=== PATIENT | female | born 2000 | race Caucasian/White ===

== ENCOUNTER 2018-07-14 23:57 | Emergency (ER) | payer OTHER ==
--- NOTE | 2018-07-15 00:11 | EDPHY ---
H & P Stated Complaint: ETOH, anxious, friends concerned about MH Source: Patient - Personal History LMP (Females 10-55): Over 28 Days Ago Current Tetanus Diphtheria and Acellular Pertussis (TDAP): Yes - Medical/Surgical History Hx Asthma: No Hx Chronic Respiratory Disease: No Hx Diabetes: No Hx Cardiac Disease: No Hx Renal Disease: No Hx Cirrhosis: No Hx Alcoholism: No Hx HIV/AIDS: No Hx Splenectomy or Spleen Trauma: No Other PMH: denies - Social History Smoking Status: Never smoked Time Seen by Provider: 07/15/18 00:11 HPI/ROS: HPI CHIEF COMPLAINT: Alcohol intoxication, suicidal statement to friends. Depressed. HISTORY OF PRESENT ILLNESS: 17-year-old female, otherwise healthy, presents emergency room by private vehicle with her friends for acute alcohol intoxication. According to friends she made suicidal statements. Patient reports that she made suicidal statements to get her friends away. She does report depression. Past Medical History: Denies medical history Past Surgical History: Denies surgical history Social History: Alcohol this evening. Unable to quantify. Family History: Noncontributory ROS REVIEW OF SYSTEMS: 10 Systems were reviewed and negative with the exception of the elements mentioned in the history of present illness. Exam Constitutional smells of alcohol, intoxicated triage nursing summary reviewed, vital signs reviewed, awake/alert. Eyes normal conjunctivae and sclera, EOMI, PERRLA. HENT normal inspection, atraumatic, moist mucus membranes, no epistaxis, neck supple/ no meningismus, no raccoon eyes. Respiratory clear to auscultation bilaterally, normal breath sounds, no respiratory distress, no wheezing. Cardiovascular rate normal, regular rhythm, no murmur, no edema, distal pulses normal. Gastrointestinal soft, non-tender, no rebound, no guarding, normal bowel sounds, no distension, no pulsatile mass. Genitourinary no CVA tenderness. Musculoskeletal no midline vertebral tenderness, full range of motion, no calf swelling, no tenderness of extremities, no meningismus, good pulses, neurovascularly intact. Skin pink, warm, & dry, no rash, skin atraumatic. Neurologic awake, alert and oriented x 3, AAOx3, moves all 4 extremities equally, motor intact, sensory intact, CN II-XII intact, normal cerebellar, normal vision, normal speech. Psychiatric sad, depressed suicidal statements earlier. Heme/Lymph/Immune no lymphadenopathy. Differential Diagnosis: Includes but is not limited to in a particular order underlying depression, mood disorder, bipolar disorder, alcohol intoxication Medical Decision Making: Plan for this patient IV establishment blood draw, serum alcohol level. Patient need mental health evaluation once she is sober. Re-evaluation: Serum alcohol level 178. 0623: Patient is now much more sober. She will need mental health evaluation due to suicidal statements made to her friends. She does feel depressed. 7:00 a.m. Shift change signed over [facility]. [facility] Constitutional: Initial Vital Signs Temperature (C) 36.6 C 07/15/18 00:01 Heart Rate 109 H 07/15/18 00:01 Respiratory Rate 20 07/15/18 00:01 Blood Pressure 154/100 H 07/15/18 00:01 O2 Sat (%) 96 07/15/18 00:01 O2 Delivery Mode Room Air Allergies/Adverse Reactions: No Known Allergies Allergy (Unverified 07/15/18 00:01) Medical Decision Making Other Provider: I assumed care of the patient at 0700. The patient was evaluated by Mental Health. The patient's boyfriend is here with her as well too. The patient contracts for safety. She does have depression and is currently under the care of a therapist. The patient reportedly made a statement last night while intoxicated that she might be "better off " the patient now states that statement was made out of frustration secondary to her alcohol use. Now that she is sober she is no longer suicidal. The patient does have a safety plan and will be discharged with the expectation she see her therapist today. The patient's boyfriend will be with her and be able to provide observation. (Jamar Saldaña) - Data Points Laboratory Results: Laboratory Results 07/15/18 00:20 07/15/18 00:20 07/15/18 07/15/18 07/15/18 01:55 00:20 00:20 WBC RBC Hgb Hct MCV MCH MCHC RDW Plt Count MPV Neut % (Auto) Lymph % (Auto) [place] % (Auto) Eos % (Auto) Baso % (Auto) Nucleat RBC Rel Count Absolute Neuts (auto) Absolute Lymphs (auto) Absolute Monos (auto) Absolute Eos (auto) Absolute Basos (auto) Absolute Nucleated RBC Immature Gran % Immature Gran # Platelet Estimate Microcytic Cells Sodium 142 mEq/L mEq/L (135-145) Potassium 3.3 mEq/L mEq/L (3.3-5.0) Chloride 113 mEq/L H mEq/L (97-110) Carbon Dioxide 19 mEq/l L mEq/l (22-31) Anion Gap 10 mEq/L mEq/L (6-14) BUN 8 mg/dL mg/dL (7-23) Creatinine 0.7 mg/dL mg/dL (0.6-1.0) Estimated GFR > 60 Glucose 118 mg/dL H mg/dL (70-100) Calcium 8.7 mg/dL mg/dL (8.5-10.4) Beta HCG, Qual NEGATIVE Urine Opiates Screen NEGATIVE (NEGATIVE) Urine Barbiturates NEGATIVE (NEGATIVE) Ur Phencyclidine Scrn NEGATIVE (NEGATIVE) Ur Amphetamine Screen NEGATIVE (NEGATIVE) U Benzodiazepines Scrn NEGATIVE (NEGATIVE) Urine Cocaine Screen NEGATIVE (NEGATIVE) U Marijuana (THC) Screen NEGATIVE (NEGATIVE) Ethyl Alcohol 178 mg/dL H mg/dL (0-10) 07/15/18 00:20 WBC 8.10 10^3/uL 10^3/uL (3.80-9.50) RBC 3.97 10^6/uL L 10^6/uL (4.18-5.33) Hgb 13.5 g/dL g/dL (12.6-16.3) Hct 35.3 % L % (38.0-47.0) MCV 88.9 fL fL (81.5-99.8) MCH 34.0 pg pg (27.9-34.1) MCHC 38.2 g/dL H g/dL (32.4-36.7) RDW 12.6 % % (11.5-15.2) Plt Count 218 10^3/uL 10^3/uL (150-400) MPV 9.0 fL fL (8.7-11.7) Neut % (Auto) 46.2 % % (39.3-74.2) Lymph % (Auto) 40.2 % % (15.0-45.0) [place] % (Auto) 10.5 % % (4.5-13.0) Eos % (Auto) 2.0 % % (0.6-7.6) Baso % (Auto) 0.7 % % (0.3-1.7) Nucleat RBC Rel Count 0.0 % % (0.0-0.2) Absolute Neuts (auto) 3.74 10^3/uL 10^3/uL (1.70-6.50) Absolute Lymphs (auto) 3.26 10^3/uL H 10^3/uL (1.00-3.00) Absolute Monos (auto) 0.85 10^3/uL H 10^3/uL (0.30-0.80) Absolute Eos (auto) 0.16 10^3/uL 10^3/uL (0.03-0.40) Absolute Basos (auto) 0.06 10^3/uL 10^3/uL (0.02-0.10) Absolute Nucleated RBC 0.00 10^3/uL 10^3/uL (0-0.01) Immature Gran % 0.4 % % (0.0-1.1) Immature Gran # 0.03 10^3/uL 10^3/uL (0.00-0.10) Platelet Estimate ADEQUATE (ADEQ) Microcytic Cells 1+ H Sodium Potassium Chloride Carbon Dioxide Anion Gap BUN Creatinine Estimated GFR Glucose Calcium Beta HCG, Qual Urine Opiates Screen Urine Barbiturates Ur Phencyclidine Scrn Ur Amphetamine Screen U Benzodiazepines Scrn Urine Cocaine Screen U Marijuana (THC) Screen Ethyl Alcohol Departure - Departure Disposition: Home, Routine, Self-Care Clinical Impression: Depression Alcoholic intoxication Qualifiers: Complication of substance-induced condition: uncomplicated Qualified Code(s): F10.920 - Alcohol use, unspecified with intoxication, uncomplicated Condition: Fair Instructions: Alcohol Intoxication (ED) Additional Instructions: 1. Please follow-up with the mental health resources provided in the ED today. 2. [facility] does operate a 08/03 psychiatric crisis unit located at [address] The telephone number for the 24 hour crisis center is [phone]. 3. Please return to the ED if you are feeling suicidal, having thoughts of harming yourself/others or should you feel unsafe or have worsening symptoms. Referrals: ROSA German,. [Clinic] - As per Instructions
[2018-07-15 01:01] LABS: PLATELET COUNT 218 10^3/uL (150-400)
[2018-07-15 07:44] VITALS: BP 117/67
--- NOTE | 2018-07-15 08:24 | ASMTTCLDSP ---
TLC Discharge Disposition Disposition: Answers: Discharge If Answers: Yes DISCHARGED: Patient/family given suicide hotline info & SAMHSA brochure? Disposition Notes: Notes: In consultation with [facility] ED physician, Juan Saldaña MD it was concurred that pt does not appear to meet 27-65 criteria requiring psychiatric hospitalization as pt does not appear to be an imminent risk of harm to self/others/gravely disabled due to a mental illness condition. Pt was offered voluntary mental health admission yet pt declined. Pt stated commitment or ability to keep self safe, denied thoughts of self harm or harm to others. Pt expressed a desire to f/u with [facility] at and seek a community therapist outside of [facility] for termite technician treatment. Pt expressed an ability to keep herself safe and denied any thoughts of self harm or suicide attempt or intent. Pt and boyfriend indicated pt will have someone with her throughout the day and evening to offer added support. Discharge Concerns/Recommendations: Notes: Pt was given local hotline information and SAMHSA brochure After an Attempt and encouraged to follow up with [facility] and seek a longer term community therapist. Pt was able to assure her safety and denied any thoughts of self harm or suicide during her clinical evalution. Pt indicated a plan to f/u with [facility] and an outpt therapist. Date Signed: 07/15/2018 08:23 AM Electronically Signed By:Britany Cook
--- NOTE | 2018-07-15 08:40 | ASMTTLCEVL ---
TLC Evaluation - Basic Information Evaluation Start Date and 07/15/2018 06:15 AM Time Hospital Status Answers: Voluntary Patient statement Notes: I definitely drank too much, mostly because I didnt eat anything since noon. I didnt say I wanted to kill myself. I just told them I wanted to be left alone and not taken to the hospital. Per boyfriend he and her friends were concerned about pt since she was exhibiting shallow breathing. Due to concerns about her medical condition she was brought to the ED. BF indicated pt did not make a suicidal statement but he is aware she has been experiencing longer term depression and would like her to have more consistent mental health support. BF indicated pt has several close friends and a good support system who are concerned and will provide ongoing support. BF does not feel pt is in need of hospitalization due to any safety concerns and feels pt will be safe for d/c. BF also indicated pt will have someone with her for added support. Narrative Notes: Pt is a 17 year old, single, female who presented to the [facility] ED with her friends for acute intoxication. According to her friends pt had made suicidal statement last night when she was intoxicated. Pt did report hx of depression. Pts BAL was .178 @ 02:20. Pts Breathalyzer at 06:14 was .077 when TLC evaluation was started. Pts utox was negative for all other substances. Diagnosis History Notes: Pt reported she has no official past dx of any mental health problems although pt reported she has experienced symptoms of depression which has included labile mood, loss of appetite and anxiety. Pt also reported in the past she has experienced some vague suicidal thoughts but denied any hx of specific plans or self harming behaviors. Pt expressed feeling as if she has been more emotional since she started taking the control pill. Pt is planning to meet with a [employer] to explore other control options. Prior suicide attempts Notes: Pt denied any hx of past suicide attempts or self harming behaviors. Prior hospitalizations Notes: Pt denied any hx of past hospitalizations for either a medical or mental health problem. Treatment Responses Notes: Pt has gone to 5 sessions at [facility] due to her concerns about ongoing depression and anxiety. Pt has not consistently followed through with recommendations and expressed a need to have a more intensive regular predatory animal exterminator therapist in place. She gave no other hx of past mental deven treatment or counseling. History of violence Notes: Pt denied any hx of violence either as a victim or harm towards others. Therapist: [facility] Medications (name, dosage, route, freq uency) Notes: BCP Allergies/Reaction Notes: No known allergies or drug interactions. Sleep Notes: Pt reported she has restless sleep. She has a pattern of waking up frequently during the night and at times having problems falling asleep. Appetite Notes: Pt denied any appetite changes but feels she has reduced some of her food intake without any known weight loss. Medical/Surgical history Notes: Pt denied any medical or surgery history. Substance use history (frequency, intensity, his tory, duration) Notes: Pt stated he tried marijuana a few times but has not used recently. She denied any pattern of any other regular substance use except for alcohol. Pt has a pattern of drinking about 2 times a week consuming about 4 drinks per occasion. Pt denied any hx of problematic drinking or problems related to drinking. This is her 1st episode of an ED visit or intervention due to drinking. Family composition Notes: Pt has a younger sister who is still in high school. Her parents marriage is intact. Pt declined to have her parents contacted. Since pt is not on a M1 hold and is an adult contact could not be made with pt. without her approval. Need for family Answers: No participation in patient's care Family psychiatric/substance abuse history Notes: Pt has an uncle who has been diagnosed with schizophrenia. There also is some alcoholism on the maternal extended family side. Pt denied any family mental health or substance abuse problems with her parents or sister. Developmental history Notes: Pt denied any developmental concerns or hx of diagnosis of ADD or ADHD. She denied any hx of past physical, emotional or sexual abuse. Abuse concerns Answers: None Marital status/children Notes: Single with no children. Living situation Notes: Pt lives in an apartment with 3 other roommates. One roommate is a close retirement friend. Pt denied any problems with any of her roommates. Sexual history/orientation Notes: Pt is sexually active and has a retirement boyfriend. Peer support/family strengths Notes: Pt and boyfriend stated that she has a strong support system with multiple close friends. 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 Pt reported school is stressful for her because of her premed classes. She reported doing well in her classes. Work history Notes: Pt is not working during the school year. 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 Notes: No hx. Legal Notes: Pt denied any hx of legal problems or past arrests. Taoist/Spiritual Notes: Pt does not practice any jainism or spiritual beliefs that would impact her treatment. Leisure Notes: Pt goes to the gym and enjoys hanging out with her friends. She has a predatory animal exterminator relationship with her boyfriend who she has known since 7th grade. Collateral Notes: Pt declined any contact with her parents. Per boyfriend he and her friends were concerned about pt since she was exhibiting shallow breathing. Due to concerns about her medical condition she was brought to the ED. BF indicated pt did not make a suicidal statement but he is aware she has been experiencing longer term depression and would like her to have more consistent mental health support. BF indicated pt has several close friends and a good support system who are concerned and will provide ongoing support. BF does not feel pt is in need of hospitalization due to any safety concerns and feels pt will be safe for d/c. BF also indicated pt will have someone with her for added support. Patient's strengths Answers: Good Friend to Others (Please select at least TWO strengths): Honest Intelligent [place] Responsible/Dependable Supportive/Compassionate Willingness TLC Evaluation - Mental Status Exam Appearance: Answers: Appropriate Clean Eye Contact: Answers: Appropriate for Culture Intermittent Mood: Answers: Depressed Sad Affect: Answers: Calm Flat Behavior: Answers: Cooperative Speech: Answers: Logical Clear Coherent Thought Process: Answers: Organized Oriented Alert Insight: Answers: Fair Judgement: Answers: Fair Depression Answers: Crying Spells Signs/Symptoms: Flat Affect Anxiety Signs/Symptoms Answers: Generalized Anxiety Hallucinations: Answers: None Current Stage of Change Answers: Action Pt reported to have Answers: No suicidal/self-injuring ideation/behavior? Pt reported to be making Answers: No suicidal/self-injuring threats? Pt reported to have Answers: No aggression/assault ideation/behavior? Pt reported to be making Answers: No aggression/assault threats? Pt exhibits inability to Answers: No care for self/grave disability? Ideation/behavior is Answers: No chronic? Patient has a specific Answers: No plan? Pt has access to means to Answers: No execute the plan? Ideation involves Answers: No serious/lethal intent? Ideation has Answers: No delusional/hallucinatory content? History of Answers: No suicidal/self-injuring ideation, behavior, or threats? History of Answers: No aggressive/assaultive ideation, behavior, or threats? History of serious Answers: No physical harm to self/others while in treatment setting? TLC Evaluation - Suicide/Homicide Risk Suicide Risk Factors: Answers: < 20 or > 40 Years of Age None Current Suicidal Answers: No Ideation? Current Suicidal Ideation Answers: No in the Past 48 Hours? Current Suicidal Ideation Answers: No in the Past Month? Suicide Internal Answers: Absence of Psychosis Protective Factors: Other Notes: Internal belief system Suicide External Answers: Positive Therapeutic Protective Factors: Relationships Social Support Ranking of patient's Answers: Low suicidal risk: Ranking of patient's Answers: Low homicidal risk: TLC Evaluation - Wrap-up BDI Total Score: 12 BDI Question #2 Score: 1 BDI Question #9 Score: 1 BSS Total Score: 0 AXIS I Diagnosis (include DSM-V and ICD-10 codes), must also be entered in [employer], which is the source of truth. 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
== END 2018-07-15 07:57 | disposition home or self-care (01) ==
DX: F10.920 Alcohol use, unspecified with intoxication, uncomplicated (principal); F32.9 Major depressive disorder, single episode, unspecified; Y90.6 Blood alcohol level of 120-199 mg/100 ml
CPT/HCPCS: 80305; G0480